=== PATIENT | male | born 1990 | race Caucasian/White ===

== ENCOUNTER → 2020-04-12 10:47 | Outpatient (CLI) | payer BC, SELFPAY ==
--- NOTE | ~2020-04-12 | XR_ITS ---
EXAMINATION: XR chest 2V EXAM DATE: 04/12/2020 11:33 INDICATION: Upper anterior chest pain. TECHNIQUE: Frontal and lateral projections of the chest obtained and reviewed. There is no prior angie dy for comparison. FINDINGS: The lungs are clear. There are no pleural effusions. The cardiomediastinal silhouette is within normal limits. There is no pneumothorax suspected. The bones and soft tissues are unremarkab le. IMPRESSION: Normal chest x-ray exam. Reviewed, dictated and finalized at location A. SETTER IMPRESSION: Normal chest x-ray exam.
== END ==
DX: R07.9 Chest pain, unspecified (principal)
CPT/HCPCS: 71046

== ENCOUNTER 2021-04-28 07:38 | Outpatient (CLI) | payer BC, SELFPAY ==
--- NOTE | ~2021-04-28 | XR_ITS ---
XR abdomen/kub 1V 04/28/2021 07:52 INDICATION: Microscopic hematuria TECHNIQUE: KUB COMPARISON: No prior studies for comparison. FINDINGS: Bowel gas pattern is normal. Moderate colonic fecal loading. There are cholecystectomy clip s. There is no evidence of free air, mass, organomegaly, ascites or obstruction. No abnormal calculi are seen. The bones appear intact. IMPRESSION: 1: No acute abdominal abnormality identified. Reviewed, dictated and finalized at location B.
--- NOTE | ~2021-04-28 | CT_ITS ---
EXAMINATION: CT abdomen pelvis wo/w con DATE: 04/28/2021 08:20 INDICATION: Microscopic hematuria. TECHNIQUE: Computed tomography (CT) of the abdomen and pelvis was performed without and with intraven ous contrast using a total of 130 mL Omnipaque-350 intravenous contrast with a double-bolus technique for simultaneous opacification of the renal parenchyma and renal collecting system. Automated exposu re control and iterative reconstruction technique were employed. The dose-length product was 1806.98 mGy-cm. COMPARISON: None FINDINGS: The visualized portions of the lung bases are clear without pneumonia or pleural effusion. The heart size is normal. No pericardial effusion. There are changes of cholecystectomy. The liver, spleen, fitch creas, adrenal glands, and right kidney are normal. There is a 3 mm cyst in left kidney. There is no urolithiasis. The ureters are well opacified and are normal. The bladder is not well distended. There are no dilated loops of bowel. The appendix is normal. There are no pathologically enlarged lymph no james. There is no free intraperitoneal fluid. There is mild thoracolumbar spondylosis. IMPRESSION: 1. No etiology for hematuria. Reviewed, dictated and finalized at location A.
== END 2021-04-28 07:39 | disposition home or self-care (01) ==
LOC: ANHIMG 07:41
PROVIDERS: Visit Provider Urology
DX: R31.29 Other microscopic hematuria (principal); N50.819 Testicular pain, unspecified; N28.1 Cyst of kidney, acquired; M47.815 Spondylosis without myelopathy or radiculopathy, thoracolumbar region; Z90.49 Acquired absence of other specified parts of digestive tract
CPT/HCPCS: 74018; 74178; Q9967